=== PATIENT | male | born 1990 | race Caucasian/White ===

== ENCOUNTER 2016-09-12 21:37 | Emergency (ER) | payer SELFPAY ==
--- NOTE | 2016-09-12 22:58 | RAD ---
INDICATION: Pain and swelling. COMPARISON: None TECHNIQUE: Duplex interrogation of the Lowerextremity was performed. FINDINGS: Deep veins: The common femoral, great saphenous, profunda femoris, proximal, mid, and distal deep femoral, popliteal, posterior tibial, and peroneal veins are patent. There is normal compressibility, augmentation, and phasic flow. Superficial veins: There are no findings of superficial thrombophlebitis. Popliteal fossa:There is no evidence of a popliteal cyst. Soft tissues:There are no soft tissue abnormalities. IMPRESSION: Normal examination. No evidence of deep venous thrombosis
[2016-09-13] MEDS ORDERED: ceFAZolin VIAL(*) 1 GM in NS 0.9% 50 ML* 50 ML IVPB ONE (00:01)
[2016-09-13 01:24] LABS: Hematocrit 44 % (42-52); Hemoglobin 14.7 g/dl (14.0-18.0); Mean Corpuscular HGB Conc 34 g/dl (31-36); Mean Corpuscular Hemoglobin 30 pg (27-31); Mean Corpuscular Volume 88 fL (80-94); Mean Platelet Volume 8 um3 (7.4-10.4); Red Blood Count 4.94 10^6/ul (4.0-5.4); Red Cell Distribution Width 13 % (10.5-15); White Blood Count 10.2 10^3/ul (3.5-10.8)
[2016-09-13 01:39] LABS: Albumin 4.1 g/dL (3.2-5.2); BUN/Creatinine Ratio 9.9 (8-20); Calcium 9.3 mg/dL (8.6-10.3); EGFR African American 130.6 (>60); EGFR Non-African American 101.5 (>60); Globulin 2.6 g/dL (2-4); Potassium 3.9 mmol/L (3.5-5.0); Total Bilirubin 0.5 mg/dL (0.2-1.0); Total Protein 6.7 g/dL (6.4-8.9)
--- NOTE | 2016-09-13 01:57 | ED ---
Skin Complaint - HPI Summary HPI Summary: 26M presents with spreading redness to left lower leg for a week. He denies any IV drug use or history of MRSA. He denies any abscess. He has multiple abrasions to the area. He denies any fever. He denies any history or family history of blood clots. He is a smoker. He is able to ambulate on the area. He denies any injury to the area. According to triage there was potential that he was going to be a voluntary MHE but he is denying any SI/HI. He states he wants to start focusing on health. He declines a MHE. There was no police paperwork if there was police involvement. - History of Current Complaint Chief Complaint: EDExtremityLower Time Seen by Provider: 09/12/16 22:07 Stated Complaint: LT LEG PAIN - Allergy/Home Medications Allergies/Adverse Reactions: Allergies Allergy/AdvReac Type Severity Reaction Status Date / Time No Known Allergies Allergy Verified 09/13/16 08:57 PMH/Surg Hx/FS Hx/Imm Hx Endocrine/Hematology History: Denies: Hx Anticoagulant Therapy Cardiovascular History: Denies: Hx Hypertension Infectious Disease History: No Infectious Disease History: Denies: Traveled Outside the US in Last 30 Days - Family History Known Family History: Negative: Blood Disorder - Social History Alcohol Use: None Alcohol Amount: states "sober 7 monthes" Substance Use Type: Reports: Other Substance Use Comment - Amount & Last Used: meth, states "clean 5 days" Smoking Status (MU): Heavy Every Day Tobacco Smoker Review of Systems Negative: Fever Negative: Chest Pain Negative: Shortness Of Breath Positive: Rash - left lower leg All Other Systems Reviewed And Are Negative: Yes Physical Exam Triage Information Reviewed: Yes Vital Signs On Initial Exam: Initial Vitals Temp Pulse Resp BP Pulse Ox 98.9 F 80 16 109/59 99 09/12/16 23:23 09/12/16 23:23 09/12/16 23:23 09/12/16 23:23 09/12/16 23:23 Vital Signs Reviewed: Yes Appearance: Positive: Well-Appearing Skin: Positive: Other - area of erythema from left foot to midcalf that is warm to touch Head/Face: Positive: Normal Head/Face Inspection Eyes: Positive: Normal, Conjunctiva Clear Respiratory/Lung Sounds: Positive: Clear to Auscultation, Breath Sounds Present Cardiovascular: Positive: Normal, RRR Musculoskeletal: Positive: Strength/ROM Intact - left ankle and knee, Other - good pulses, capillary refill< 2 secs, no pain of joints with ROM, - Epifanio Coma Scale Coma Scale Total: 14 Diagnostics - Vital Signs Vital Signs Temp Pulse Resp BP Pulse Ox 09/12/16 23:23 98.9 F 80 16 109/59 99 - Laboratory Lab Results: Lab Results 09/13/16 09/13/16 09/13/16 Range/Units 01:13 01:13 01:13 WBC 10.2 (3.5-10.8) 10^3/ul RBC 4.94 (4.0-5.4) 10^6/ul Hgb 14.7 (14.0-18.0) g/dl Hct 44 (42-52) % MCV 88 (80-94) fL MCH 30 (27-31) pg MCHC 34 (31-36) g/dl RDW 13 (10.5-15) % Plt Count 247 (150-450) 10^3/ul MPV 8 (7.4-10.4) um3 Neut % (Auto) 55.3 (38-83) % Lymph % (Auto) 35.3 (25-47) % [place] % (Auto) 6.1 (1-9) % Eos % (Auto) 2.5 (0-6) % Baso % (Auto) 0.8 (0-2) % Absolute Neuts (auto) 5.7 (1.5-7.7) 10^3/ul Absolute Lymphs (auto) 3.6 (1.0-4.8) 10^3/ul Absolute Monos (auto) 0.6 (0-0.8) 10^3/ul Absolute Eos (auto) 0.3 (0-0.6) 10^3/ul Absolute Basos (auto) 0.1 (0-0.2) 10^3/ul Absolute Nucleated RBC 0.01 10^3/ul Nucleated RBC % 0.1 Sodium 137 (133-145) mmol/L Potassium 3.9 (3.5-5.0) mmol/L Chloride 100 L (101-111) mmol/L Carbon Dioxide 29 (22-32) mmol/L Anion Gap 8 (2-11) mmol/L BUN 9 (6-24) mg/dL Creatinine 0.91 (0.67-1.17) mg/dL Est GFR ( Amer) 130.6 (>60) Est GFR (Non-Af Amer) 101.5 (>60) BUN/Creatinine Ratio 9.9 (8-20) Glucose 100 (70-100) mg/dL Lactic Acid 0.9 (0.5-2.0) mmol/L Calcium 9.3 (8.6-10.3) mg/dL Total Bilirubin 0.50 (0.2-1.0) mg/dL AST 19 (13-39) U/L ALT 20 (7-52) U/L Alkaline Phosphatase 90 (34-104) U/L C-React Prot High Sens 5.34 mg/L Total Protein 6.7 (6.4-8.9) g/dL Albumin 4.1 (3.2-5.2) g/dL Globulin 2.6 (2-4) g/dL Albumin/Globulin Ratio 1.6 (1-3) Result Diagrams: 09/13/16 01:13 09/13/16 01:13 Lab Statement: Any lab studies that have been ordered have been reviewed, and results considered in the medical decision making process. - Ultrasound No standard instances Ultrasound Interpretation: No Acute Changes Ultrasound Interpretation Completed By: Radiologist Course/Dx - Course Course Of Treatment: 26M presents with spreading redness to left lower leg for a week. He has multiple abrasions to the area. He denies any fever. u/s normal. on exam large area of cellulitis. labs normal, gave dose of ancef and prescribed keflex. patient denies any si/hi and does not want MHE. is voluntary so can not force MHE as no paperwork brought in with him. do not see need for involuntary MHE at this time. patient understands and agrees with plan. According to triage there was potential that he was going to be a voluntary MHE but he is denying any SI/HI. He states he wants to start focusing on health. He declines a MHE. There was no police paperwork if there was police involvement. - Differential Diagnoses - Skin Complaint Differential Diagnoses: Abscess, Cellulitis, Other - DVT - Diagnoses Provider Diagnoses: Left leg cellulitis Discharge - Discharge Plan Condition: Good Disposition: HOME Prescriptions: Cephalexin CAP* [Keflex CAP*] 500 mg PO TID #30 cap Patient Education Materials: Cellulitis (ED) Referrals: [facility] [Outside] Additional Instructions: Take Keflex 4 times a day for 10 days Establish care with primary care physician Return to ED if develop fever, area of redness spreads, numbness or any new or worsening symptoms
[2016-09-13 02:52] VITALS: BP 106/56
== END 2016-09-13 02:46 | disposition home or self-care (01) ==
LOC: ED 21:37
DX: L03.90 Cellulitis, unspecified (principal); M79.605 Pain in left leg; R21 Rash and other nonspecific skin eruption; F17.210 Nicotine dependence, cigarettes, uncomplicated
CPT/HCPCS: 36415; 80053; 83605; 85025; 86141; 96360; 99284; J0690

== ENCOUNTER 2016-09-13 08:49 | Inpatient (IN) | payer SELFPAY ==
[2016-09-13] MEDS ORDERED: Cephalexin CAP* 500 MG PO ONE (09:24)
[2016-09-13 10:03] LABS: Hematocrit 44 % (42-52); Hemoglobin 14.4 g/dl (14.0-18.0); Mean Corpuscular HGB Conc 33 g/dl (31-36); Mean Corpuscular Hemoglobin 29 pg (27-31); Mean Corpuscular Volume 89 fL (80-94); Mean Platelet Volume 8 um3 (7.4-10.4); Red Blood Count 4.92 10^6/ul (4.0-5.4); Red Cell Distribution Width 13 % (10.5-15); White Blood Count 7.5 10^3/ul (3.5-10.8)
[2016-09-13 10:17] LABS: ALT 19 U/L (7-52); AST 19 U/L (13-39); Albumin 3.9 g/dL (3.2-5.2); Alkaline Phosphatase 87 U/L (34-104); Anion Gap 6 mmol/L (2-11); BUN/Creatinine Ratio 8.7 (8-20); Blood Urea Nitrogen 8 mg/dL (6-24); CO2 Carbon Dioxide 28 mmol/L (22-32); Chloride 102 mmol/L (101-111); EGFR African American 128.9 (>60); EGFR Non-African American 100.2 (>60); Globulin 2.5 g/dL (2-4); Glucose 100 mg/dL (70-100); Potassium 4.2 mmol/L (3.5-5.0); Sodium 136 mmol/L (133-145); Total Protein 6.4 g/dL (6.4-8.9)
[2016-09-13 10:48] LABS: Acetaminophen < 15 mcg/mL; Alcohol < 10 mg/dL (<10); Salicylate < 2.50 mg/dL (<30); TSH (Thyroid Stimulating Horm) 1.09 mcIU/mL (0.34-5.60)
[2016-09-13 13:04] LABS: Budding Yeast Present (Absent); Urine Bacteria Absent (Absent); Urine Bilirubin Negative (Negative); Urine Glucose Negative (Negative); Urine Nitrite Negative (Negative)
[2016-09-13 13:22] LABS: Benzodiazepine Urine Screen None Detected (None Detect)
--- NOTE | 2016-09-13 18:53 | ED ---
Rosa Combs [place], scribed for Magdy Cam MD on 09/13/16 at 1000 . Psychiatric Complaint - HPI Summary HPI Summary: Patient is a 26 y/o M who presents to the ED with a mental health complaint. He reports feeling alone, but denies plan for SI or hearing any voices. Pt also denies hx of hospitalization, but he was in the ED last night for a skin infection on LLE. His dropped the pt at the hospital and drove back to [place] last night. Thus, pt spent the night in the waiting room. When pt was asked to leave, he reported suicidal and wants a MHE and Drug Rehab from [facility]. - History Of Current Complaint Chief Complaint: EDMentalHealth Time Seen by Provider: 09/13/16 09:03 Hx Obtained From: Patient Onset/Duration: Gradual Onset, Still Present Timing: Constant Severity Initially: Moderate Severity Currently: Moderate Character: Depressed Aggravating Factor(s): Nothing Alleviating Factor(s): Nothing Associated Signs And Symptoms: Positive: Negative Has Suicidal: Denies: With A Plan - Allergies/Home Medications Allergies/Adverse Reactions: Allergies Allergy/AdvReac Type Severity Reaction Status Date / Time No Known Allergies Allergy Verified 09/13/16 08:57 PMH/Surg Hx/FS Hx/Imm Hx Previously Healthy: Yes Infectious Disease History: No Infectious Disease History: Denies: Traveled Outside the US in Last 30 Days - Family History Known Family History: Negative: Blood Disorder - Social History Alcohol Use: None Alcohol Amount: states "sober 7 monthes" Hx Substance Use: Yes Substance Use Type: Reports: Other Substance Use Comment - Amount & Last Used: meth, states "clean 5 days" Hx Tobacco Use: Yes Smoking Status (MU): Heavy Every Day Tobacco Smoker Review of Systems Negative: Fever Positive: Other - See HPI. All Other Systems Reviewed And Are Negative: Yes Physical Exam - Summary Physical Exam Summary: The patient is well-nourished in no acute distress and in no acute pain. The skin is warm and dry and skin color reflects adequate perfusion. Strong smell. HEENT: The head is normocephalic and atraumatic. The pupils are equal and reactive. The conjunctivae are clear and without drainage. Neck is supple with full range of motion and non-tender. Respiratory: Chest is non-tender. Lungs are clear to auscultation and breath sounds are symmetrical and equal. Cardiovascular: Heart is regular rate and rhythm. There is no murmur or rub auscultated. There is no peripheral edema and pulses are symmetrical and equal. Abdomen: The abdomen is soft and non-tender. Musculoskeletal: There is no back pain noted. Extremities are non-tender with full range of motion. Cellulitis of LLE. Seen by Dr. Gonsalves and treated last night. Neurological: Patient is alert and oriented to person, place and time. The patient has symmetrical motor strength in all four extremities. Psychiatric: The patient has an appropriate affect and does not exhibit any anxiety or depression. Triage Information Reviewed: Yes Vital Signs On Initial Exam: Initial Vitals Temp Pulse Resp BP Pulse Ox 98.4 F 88 16 134/76 98 09/13/16 08:52 09/13/16 08:52 09/13/16 08:52 09/13/16 08:52 09/13/16 08:52 Vital Signs Reviewed: Yes - Epifanio Coma Scale Coma Scale Total: 15 Diagnostics - Vital Signs Vital Signs Temp Pulse Resp BP Pulse Ox 09/13/16 08:57 98.4 F 87 16 134/76 98 09/13/16 08:52 98.4 F 88 16 134/76 98 - Laboratory Lab Results: Lab Results 09/13/16 09/13/16 09/13/16 Range/Units 09:50 09:50 12:40 WBC 7.5 (3.5-10.8) 10^3/ul RBC 4.92 (4.0-5.4) 10^6/ul Hgb 14.4 (14.0-18.0) g/dl Hct 44 (42-52) % MCV 89 (80-94) fL MCH 29 (27-31) pg MCHC 33 (31-36) g/dl RDW 13 (10.5-15) % Plt Count 244 (150-450) 10^3/ul MPV 8 (7.4-10.4) um3 Neut % (Auto) 61.1 (38-83) % Lymph % (Auto) 27.6 (25-47) % [place] % (Auto) 7.1 (1-9) % Eos % (Auto) 3.5 (0-6) % Baso % (Auto) 0.7 (0-2) % Absolute Neuts (auto) 4.6 (1.5-7.7) 10^3/ul Absolute Lymphs (auto) 2.1 (1.0-4.8) 10^3/ul Absolute Monos (auto) 0.5 (0-0.8) 10^3/ul Absolute Eos (auto) 0.3 (0-0.6) 10^3/ul Absolute Basos (auto) 0.1 (0-0.2) 10^3/ul Absolute Nucleated RBC 0.01 10^3/ul Nucleated RBC % 0.1 Sodium 136 (133-145) mmol/L Potassium 4.2 (3.5-5.0) mmol/L Chloride 102 (101-111) mmol/L Carbon Dioxide 28 (22-32) mmol/L Anion Gap 6 (2-11) mmol/L BUN 8 (6-24) mg/dL Creatinine 0.92 (0.67-1.17) mg/dL Est GFR ( Amer) 128.9 (>60) Est GFR (Non-Af Amer) 100.2 (>60) BUN/Creatinine Ratio 8.7 (8-20) Glucose 100 (70-100) mg/dL Calcium 9.0 (8.6-10.3) mg/dL Total Bilirubin 0.60 (0.2-1.0) mg/dL AST 19 (13-39) U/L ALT 19 (7-52) U/L Alkaline Phosphatase 87 (34-104) U/L Total Protein 6.4 (6.4-8.9) g/dL Albumin 3.9 (3.2-5.2) g/dL Globulin 2.5 (2-4) g/dL Albumin/Globulin Ratio 1.6 (1-3) TSH 1.09 (0.34-5.60) mcIU/mL Urine Color Yellow Urine Appearance Cloudy Urine pH 8.0 (5-9) Ur Specific [place] 1.020 (1.010-1.030) Urine Protein 1+(30 mg/dl) H (Negative) Urine Ketones Negative (Negative) Urine Blood Negative (Negative) Urine Nitrate Negative (Negative) Urine Bilirubin Negative (Negative) Urine Urobilinogen Negative (Negative) Ur Leukocyte Esterase Negative (Negative) Urine WBC (Auto) Absent (Absent) Urine RBC (Auto) Absent (Absent) Urine Bacteria Absent (Absent) Urine Yeast Present H (Absent) Urine Glucose Negative (Negative) Salicylates < 2.50 (<30) mg/dL Urine Opiates Screen (None Detect) Acetaminophen < 15 mcg/mL Ur Barbiturates Screen (None Detect) Ur Phencyclidine Scrn (None Detect) Ur Amphetamines Screen (None Detect) U Benzodiazepines Scrn (None Detect) Urine Cocaine Screen (None Detect) U Cannabinoids Screen (None Detect) Serum Alcohol < 10 (<10) mg/dL 09/13/16 Range/Units 12:40 WBC (3.5-10.8) 10^3/ul RBC (4.0-5.4) 10^6/ul Hgb (14.0-18.0) g/dl Hct (42-52) % MCV (80-94) fL MCH (27-31) pg MCHC (31-36) g/dl RDW (10.5-15) % Plt Count (150-450) 10^3/ul MPV (7.4-10.4) um3 Neut % (Auto) (38-83) % Lymph % (Auto) (25-47) % [place] % (Auto) (1-9) % Eos % (Auto) (0-6) % Baso % (Auto) (0-2) % Absolute Neuts (auto) (1.5-7.7) 10^3/ul Absolute Lymphs (auto) (1.0-4.8) 10^3/ul Absolute Monos (auto) (0-0.8) 10^3/ul Absolute Eos (auto) (0-0.6) 10^3/ul Absolute Basos (auto) (0-0.2) 10^3/ul Absolute Nucleated RBC 10^3/ul Nucleated RBC % Sodium (133-145) mmol/L Potassium (3.5-5.0) mmol/L Chloride (101-111) mmol/L Carbon Dioxide (22-32) mmol/L Anion Gap (2-11) mmol/L BUN (6-24) mg/dL Creatinine (0.67-1.17) mg/dL Est GFR ( Amer) (>60) Est GFR (Non-Af Amer) (>60) BUN/Creatinine Ratio (8-20) Glucose (70-100) mg/dL Calcium (8.6-10.3) mg/dL Total Bilirubin (0.2-1.0) mg/dL AST (13-39) U/L ALT (7-52) U/L Alkaline Phosphatase (34-104) U/L Total Protein (6.4-8.9) g/dL Albumin (3.2-5.2) g/dL Globulin (2-4) g/dL Albumin/Globulin Ratio (1-3) TSH (0.34-5.60) mcIU/mL Urine Color Urine Appearance Urine pH (5-9) Ur Specific [place] (1.010-1.030) Urine Protein (Negative) Urine Ketones (Negative) Urine Blood (Negative) Urine Nitrate (Negative) Urine Bilirubin (Negative) Urine Urobilinogen (Negative) Ur Leukocyte Esterase (Negative) Urine WBC (Auto) (Absent) Urine RBC (Auto) (Absent) Urine Bacteria (Absent) Urine Yeast (Absent) Urine Glucose (Negative) Salicylates (<30) mg/dL Urine Opiates Screen None detected (None Detect) Acetaminophen mcg/mL Ur Barbiturates Screen None detected (None Detect) Ur Phencyclidine Scrn None detected (None Detect) Ur Amphetamines Screen Presumptive positive H (None Detect) U Benzodiazepines Scrn None detected (None Detect) Urine Cocaine Screen None detected (None Detect) U Cannabinoids Screen None detected (None Detect) Serum Alcohol (<10) mg/dL Result Diagrams: 09/13/16 09:50 09/13/16 09:50 Lab Statement: Any lab studies that have been ordered have been reviewed, and results considered in the medical decision making process. Course/Dx - Course Course Of Treatment: 26 y/o M presents with mental health complaint. He reports feeling alone, but denies plan for SI or hearing any voices. Pt received Keflex in the ED course. Pt will receive mental health evaluation. Pt is medically cleared at 1241. Pending MHE. - Differential Dx/Clinical Impression Differential Diagnosis/HQI/PQRI: Positive: Depression, Suicidal Ideation, Other - substance abuse, cellulitis lle Provider Diagnosis: Depression, Homelessness, Suicidal ideations, Cellulitis of left lower extremity Discharge - Discharge Plan Condition: Stable Disposition: OTHER Discharge Disposition Comment: Pt signed out at shift change. Pending MHE. The documentation as recorded by the Rosa eid,[place] accurately reflects the service I personally performed and the decisions made by me, Magdy Cam MD.
[2016-09-13] MEDS ORDERED: Cephalexin CAP* 500 MG ONE (19:39)
[2016-09-13] MEDS ORDERED: Nicotine Inhaler* 10 MG AMP INH PRN (20:17)
[2016-09-13] MEDS ORDERED: diPHENhydraMINE PO* 50 MG PO PRN (20:20)
[2016-09-13] MEDS ORDERED: Cephalexin CAP* 500 MG PO SCH (21:00)
[2016-09-13] MEDS: Cephalexin CAP* 500 MG PO SCH (21:44)
--- NOTE | 2016-09-14 02:25 | ED ---
I, Maximus Slaughter, scribed for Yara Elam MD on 09/13/16 at 2017 . Progress - Progress Note Progress Note: Signout pt from Dr. Cam. This is a 26yo male c/o feeling depressed and alone. Pt voices SI. Pt has no plan, but per notes, mother reports suicidal ideation multiple times in recent past. Pt is medically cleared for MHE. Is being treated for cellulitis of his left leg and has been receiving cephalexin 500mg while in ED and flex unit. - Consult/PCP Time Called: 18:00 Re-Evaluation - Re-Evaluation First Eval Re-Evaluation Time: 20:35 Change: Improved - Minimal redness to the LLE on the medial aspect with mild abrasion Course/Dx - Course Course Of Treatment: Reviewed medication lists and known allergies. Pt is medically cleared at 1241. Pending MHE. Upon re-evaluation at 2034, pt decines to give HPI stating " I don't want to repeat myself like 7 times." Chart reviewed. Dr. Mackey recommends voluntary admit. Pt is agreeable. Documents signed for voluntary admit for further evaluation and treatment of depression and suicidal ideation. Pt will need continued treatment of his leg cellulitis with cephalexin 500mg qid x 10 days total. - Diagnoses Provider Diagnoses: Depression, Homelessness, Suicidal ideations, Cellulitis of left lower extremity - Provider Notifications Discussed Care Of Patient With: Jaskaran Mackey - per psych vocational evaluator, Dr. Mackey recommends admit. Instructed by Provider To: Admit As Inpatient The documentation as recorded by the Sukhjinder eid [place] accurately reflects the service I personally performed and the decisions made by me, Yara Elam MD.
[2016-09-14] MEDS: Cephalexin CAP* 500 MG PO SCH ×3 (09:53→20:16)
--- NOTE | 2016-09-14 17:25 | HP ---
H&P (Free Text) History and Physical: HPI: ---- 28yo male patient with no significant PPHx who self presented to the [facility] after camp counselor from his mom due to his not having anywhere to sleep. Patient is from [place], [place] and traveled to [place] to meet up with his and kids. Patient reports his of 1 year, his 2 children, and [id number] are on the run from authorities in [facility] who have decided to take custody of their kids. Patient reports he and his have multiple drug charges due to methamphetamine use/possession. He reports CPS took custody from he and his and the kids were placed in the home of their maternal GM. Patient reports recently CPS found his [id number] was found to be unfit and was told CPS would be there to take the children. Patient reportshis family left [place] without telling him. Patient reports finally contacting his and fiquring out where his family was. Patient reports he traveled to [place] in hopes of reuniting with his and kids. He reports he and his have been about a month due to their drug use and recent legal issues. He reports when he got to [place] they were to meet at [facility]. He reports when he got to [facility], he spoke to his [id number], his was not there. He reports she left him there, stating she'd come back with his but never returned. He reports knowing no one in [place] and exhausting all his money to travel here. Patient endorses 10/10 depression but stated, "nothing is worth killing yourself ". He emphatically reiterates he is not suicidal and made the statement in the ED to be sure of admission. He reports no other symptoms of depressive d/ o, anxiety d/o, or psychotic d/o. He has no trauma hx. He denies hx of suicide attempt and SIB. He reports no MH hx or use of psychotropic meds. He reports being currently clean of illicit substances. He reports his mother is to be sending him a bus ticket back to [place] Sunday. He reports he has court for his drug charges on 09/19/16. Patient has RLE cellulitis noted on PE in the ED. He was started on a 10 day Abx course. Past Psych Hx: Inpt - none Outpt - none Psychotropic med hx - none Suicide attempt Hx / SIB Hx: none Trauma Hx: none Substance Hx: Patient reports recent hx of daily methamphetamine use, but reports due to mounting legal issues 2/2 drug charges he is currently sober. Medical Hx: Patient has RLE cellulitis, started on a 10 day Abx course in ED Allergies: --------- Erythromycin Family Hx: none Social Hx: --------- See HPI PHYSICAL EXAM: Patient declined PE. Please see physical exam documented in the [facility]: Psychiatric Complaint note dated 09/14/16 LABS: ----- Laboratory Tests 09/14/16 09/14/16 09/14/16 02:02 02:02 03:05 WBC 8.8 RBC 5.38 Hgb 14.9 Hct 44 MCV 83 MCH 28 MCHC 34 RDW 15 Plt Count 308 MPV 8 Neut % (Auto) 62.4 Lymph % (Auto) 23.3 L [place] % (Auto) 7.3 Eos % (Auto) 3.6 Baso % (Auto) 3.4 H Absolute Neuts (auto) 5.5 Absolute Lymphs (auto) 2.1 Absolute Monos (auto) 0.6 Absolute Eos (auto) 0.3 Absolute Basos (auto) 0.3 H Absolute Nucleated RBC 0 Nucleated RBC % 0 Sodium 137 Potassium 3.8 Chloride 104 Carbon Dioxide 25 Anion Gap 8 BUN 18 Creatinine 0.99 Est GFR ( Amer) 116.6 Est GFR (Non-Af Amer) 90.7 BUN/Creatinine Ratio 18.2 Glucose 81 Calcium 9.5 Total Bilirubin 0.80 AST 19 ALT 33 Alkaline Phosphatase 57 Total Protein 8.1 Albumin 4.5 Globulin 3.6 Albumin/Globulin Ratio 1.3 TSH 2.10 Urine Color Yellow Urine Appearance Clear Urine pH 5.0 Ur Specific [place] 1.033 H Urine Protein Negative Urine Ketones Negative Urine Blood Negative Urine Nitrate Negative Urine Bilirubin Negative Urine Urobilinogen Negative Ur Leukocyte Esterase 1+ H Urine WBC (Auto) Trace(0-5/hpf) Urine RBC (Auto) 1+(3-5/hpf) H Ur Squamous Epith Cells Present H Urine Bacteria Absent Urine Glucose Negative Urine Ascorbic Acid * H Salicylates < 2.50 Urine Opiates Screen Acetaminophen < 15 Ur Barbiturates Screen Ur Phencyclidine Scrn Ur Amphetamines Screen U Benzodiazepines Scrn Urine Cocaine Screen U Cannabinoids Screen Serum Alcohol < 10 09/14/16 03:05 WBC RBC Hgb Hct MCV MCH MCHC RDW Plt Count MPV Neut % (Auto) Lymph % (Auto) [place] % (Auto) Eos % (Auto) Baso % (Auto) Absolute Neuts (auto) Absolute Lymphs (auto) Absolute Monos (auto) Absolute Eos (auto) Absolute Basos (auto) Absolute Nucleated RBC Nucleated RBC % Sodium Potassium Chloride Carbon Dioxide Anion Gap BUN Creatinine Est GFR ( Amer) Est GFR (Non-Af Amer) BUN/Creatinine Ratio Glucose Calcium Total Bilirubin AST ALT Alkaline Phosphatase Total Protein Albumin Globulin Albumin/Globulin Ratio TSH Urine Color Urine Appearance Urine pH Ur Specific [place] Urine Protein Urine Ketones Urine Blood Urine Nitrate Urine Bilirubin Urine Urobilinogen Ur Leukocyte Esterase Urine WBC (Auto) Urine RBC (Auto) Ur Squamous Epith Cells Urine Bacteria Urine Glucose Urine Ascorbic Acid Salicylates Urine Opiates Screen Presumptive positive H Acetaminophen Ur Barbiturates Screen None detected Ur Phencyclidine Scrn None detected Ur Amphetamines Screen None detected U Benzodiazepines Scrn None detected Urine Cocaine Screen None detected U Cannabinoids Screen Presumptive positive H Serum Alcohol MSE: ----- Appearance - moderate build, poor hygeine, in NAD Behavior - mildly agitated, cooperative Speech - RRR, prosody wnl Eye Contact - good Mood - "upset" Affect - depressed TP - linear and GD TC - wanting to reunite his family Perception - no signs of psychosis noted or reported Orientation - A&Ox3 Cognition - intact Insight - poor Judgement - poor SI / HI - SI present on admission, currently denies both ASSESSMENT: 1. Adjustment disorder with disturbance of mood and conduct PLAN: ------ 1. Continue admission to [facility] for safety and symptom mx. 2. Discharge patient as soon as a safe discharge plan is formulated. 3. Discharge patient with Abx Rx for cellulitis dx. 4. Continue compiling collateral information from mother#[phone]. 5. Patient to participate in milieu activities and groups.
[2016-09-15 07:51] VITALS: BP 110/58
[2016-09-15] MEDS: Cephalexin CAP* 500 MG PO SCH ×2 (09:34→14:25)
--- NOTE | 2016-09-15 12:32 | DS ---
Subjective - Subjective Service Types: 01324 Hosp DC Day Mgmt simple under 30 min Subjective: Patient reports ongoing depressed mood, but again denies SI/HI. He is linear and GD in TP. He is future oriented to head back home to [place] where all his family support is and where he can work on his sobriety and getting the custody of his son back. He was informed he would be given a bus ticket back to [place], [place] with referral to an inpatient treatment program. He is amenable to discharge plan. Objective - Appearance Appearance: Thin Framed Dysmorphic Features: No Hygiene: Normal Grooming: Disheveled - Behavior Psychomotor Activities: Normal Exhibits Abnormal Movement: No - Attitude and Relatedness Attitude and Relatedness: Cooperative Eye Contact: Good - Speech Quality: Unpressured Latencies: Normal Quantity: Appropriate - Mood Patient's Decription of Mood: "Sad" - Affect Observed Affect: Depressed Affect Consistent with: Dysphoria - Thought Process Patient's Thought Process: Coherent Thought Content: No Passive Wish, No Suicidal Planning, No Homicidal Ideation, No Paranoid Ideation - Sensorium Experiencing Hallucinations: No, Sensorium is Clear Type of Hallucinations: Visual: No, Auditory: No, Command: No - Level of Consciousness Level of Consciousness: Alert Orientation: Yes Intact, Yes Orientated to Time, Yes Orientated to Place, Yes Orientated to Person - Impulse Control Impulse Control: Intact - Insight and Judgement Insight and Judgement: Fair - Group Participation Particating in Group Activities: No - Medication Management Medication Management Adherence: Yes Treatment Course & Assessment Clinical Course & Impression: HOSPITAL COURSE: Patient endorses 10/10 depression but stated, "nothing is worth killing yourself ". He emphatically reiterates he is not suicidal and made the statement in the ED to be sure of admission. He reports no other symptoms of depressive d/ o, anxiety d/o, or psychotic d/o. He has no trauma hx. He denies hx of suicide attempt and SIB. He reports no MH hx or use of psychotropic meds. He reports being currently clean of illicit substances. He reports his mother is to be sending him a bus ticket back to [place] Sunday. He reports he has court for his drug charges on 09/19/16. Patient has RLE cellulitis noted on PE in the ED. He was started on a 10 day Abx course. On day of discharge patient was psychiatrically stable. He was given a cab to [facility] and a ticket [address] to [facility]. He was encouraged to seek inpatient substance abuse treatment. He denied SI/HI. PERTINENT LABS: Laboratory Tests 09/13/16 09/13/16 09/13/16 09:50 09:50 12:40 WBC 7.5 RBC 4.92 Hgb 14.4 Hct 44 MCV 89 MCH 29 MCHC 33 RDW 13 Plt Count 244 MPV 8 Neut % (Auto) 61.1 Lymph % (Auto) 27.6 [place] % (Auto) 7.1 Eos % (Auto) 3.5 Baso % (Auto) 0.7 Absolute Neuts (auto) 4.6 Absolute Lymphs (auto) 2.1 Absolute Monos (auto) 0.5 Absolute Eos (auto) 0.3 Absolute Basos (auto) 0.1 Absolute Nucleated RBC 0.01 Nucleated RBC % 0.1 Sodium 136 Potassium 4.2 Chloride 102 Carbon Dioxide 28 Anion Gap 6 BUN 8 Creatinine 0.92 Est GFR ( Amer) 128.9 Est GFR (Non-Af Amer) 100.2 BUN/Creatinine Ratio 8.7 Glucose 100 Calcium 9.0 Total Bilirubin 0.60 AST 19 ALT 19 Alkaline Phosphatase 87 Total Protein 6.4 Albumin 3.9 Globulin 2.5 Albumin/Globulin Ratio 1.6 TSH 1.09 Urine Color Yellow Urine Appearance Cloudy Urine pH 8.0 Ur Specific [place] 1.020 Urine Protein 1+(30 mg/dl) H Urine Ketones Negative Urine Blood Negative Urine Nitrate Negative Urine Bilirubin Negative Urine Urobilinogen Negative Ur Leukocyte Esterase Negative Urine WBC (Auto) Absent Urine RBC (Auto) Absent Urine Bacteria Absent Urine Yeast Present H Urine Glucose Negative Salicylates < 2.50 Urine Opiates Screen Acetaminophen < 15 Ur Barbiturates Screen Ur Phencyclidine Scrn Ur Amphetamines Screen U Benzodiazepines Scrn Urine Cocaine Screen U Cannabinoids Screen Serum Alcohol < 10 09/13/16 12:40 WBC RBC Hgb Hct MCV MCH MCHC RDW Plt Count MPV Neut % (Auto) Lymph % (Auto) [place] % (Auto) Eos % (Auto) Baso % (Auto) Absolute Neuts (auto) Absolute Lymphs (auto) Absolute Monos (auto) Absolute Eos (auto) Absolute Basos (auto) Absolute Nucleated RBC Nucleated RBC % Sodium Potassium Chloride Carbon Dioxide Anion Gap BUN Creatinine Est GFR ( Amer) Est GFR (Non-Af Amer) BUN/Creatinine Ratio Glucose Calcium Total Bilirubin AST ALT Alkaline Phosphatase Total Protein Albumin Globulin Albumin/Globulin Ratio TSH Urine Color Urine Appearance Urine pH Ur Specific [place] Urine Protein Urine Ketones Urine Blood Urine Nitrate Urine Bilirubin Urine Urobilinogen Ur Leukocyte Esterase Urine WBC (Auto) Urine RBC (Auto) Urine Bacteria Urine Yeast Urine Glucose Salicylates Urine Opiates Screen None detected Acetaminophen Ur Barbiturates Screen None detected Ur Phencyclidine Scrn None detected Ur Amphetamines Screen Presumptive positive H U Benzodiazepines Scrn None detected Urine Cocaine Screen None detected U Cannabinoids Screen None detected Serum Alcohol Discharge Meds: Home Medications Medication Instructions Recorded Confirmed Type Cephalexin CAP* [Keflex 500 CAP*] 500 mg PO TID #30 cap 09/15/16 Rx Rx called to: [facility] [address] [place] [address] Consultants: none Follow-Up: Patient will be referred to an inpatient substance abuse treatment program in [place], [place]. Clear for Discharge: Low Utility of Inpt Care Discharge Planning - Discharge Planning Discharge Plan: Outpatient Follow Up Recommendations for Continuing Care: Substance Abuse Counseling Medications: Current Medications Cephalexin HCl (Keflex Cap*) 500 mg PO TID [facility] Last Admin: 09/15/16 09:34 Dose: 500 mg Discharge Planning: Prescriptions provided for discharge [x] Yes [] No Follow up care details as per social work arrangements. Patient response to discharge plan: [] eager for discharge [x] agreeable with discharge plan [] ambivalent about discharge [] disagrees with discharge today
== END 2016-09-15 15:25 | disposition home or self-care (01) | DRG 882 ==
LOC: ED 08:49 → BSU 20:41
PROVIDERS: ADMIT Psychiatry & Neurology Psychiatry; ATTEND Psychiatry & Neurology Psychiatry
DX: F43.25 Adjustment disorder with mixed disturbance of emotions and conduct (principal); L03.116 Cellulitis of left lower limb; F15.10 Other stimulant abuse, uncomplicated
CPT/HCPCS: 36415; 80053; 80307; 80320; 80329; 81003; 81015; 84443; 85025; 99222; 99238; A9270-GY; G0480